=== PATIENT | male | born 1970 | race American Indian/Alaskan Native ===

== ENCOUNTER 2017-05-23 15:09 | Emergency (ER) | payer SELFPAY ==
--- NOTE | 2017-05-23 22:40 | Emergency Department Report ---
Minor Respiratory - HPI Chief Complaint: Upper Respiratory Infection Stated Complaint: FLU LIKE SYMPTOMS Time Seen by Provider: 05/23/17 22:39 Minor Respiratory: Yes Rhinorrhea, Yes Able to Tolerate Fluids, Yes Cough, Yes Chest Pain (with cough), Yes Fever, No Sore Throat, No Ear Pain, No Sick Contacts, No Hemoptysis, No Shortness of Breath Other History: This is a 47 y.o. male presents with cough, weakness, congesion, fever, sneezing, and body aches for 1 week. Patient state he has been taking OTC cold and flu medicine for a week with no improvement. Admits to not getting influenza vaccine this season. Denies SOB, wheezing, nausea, and vomiting. ED Review of Systems ROS: Stated complaint: FLU LIKE SYMPTOMS Other details as noted in HPI Constitutional: see HPI, chills, fever, weakness. denies: diaphoresis, malaise Eyes: denies: eye pain, eye discharge, vision change ENT: as per HPI, congestion. denies: ear pain, throat pain, dental pain, hearing loss, epistaxis Respiratory: see HPI, cough. denies: orthopnea, shortness of breath, SOB with exertion, SOB at rest, stridor, wheezing Cardiovascular: chest pain (with coughing). denies: palpitations, dyspnea on exertion, orthopnea, edema, syncope, paroxysmal nocturnal dyspnea Gastrointestinal: denies: abdominal pain, nausea, diarrhea Musculoskeletal: myalgia (genearlized). denies: back pain, joint swelling, arthralgia Neurological: denies: headache, weakness, paresthesias ED Past Medical Hx - Past Medical History Hx Hypertension: Yes Hx Diabetes: Yes Additional medical history: High Cholesterol - Surgical History Past Surgical History?: No - Social History Smoking Status: Never Smoker Substance Use Type: None - Medications Home Medications: Home Medications Medication Instructions Recorded Confirmed Last Taken Type Azithromycin [Zithromax] 250 mg PO DAILY 4 Days #4 tablet 05/24/17 Unknown Rx Benzonatate 200 mg PO TID PRN #30 capsule 05/24/17 Unknown Rx Fluticasone [Flonase] 1 spray NS QDAY #1 bottle 05/24/17 Unknown Rx Minor Respiratory Exam - Exam General: Vital signs noted. No distress. Alert and acting appropriately. HEENT: Yes Pharyngeal Erythema, Yes Moist Mucous Membranes, Yes Rhinorrhea ( turbinates swollen and red, mucoid discharge bilaterally), Yes Frontal Tenderness, No Pharyngeal Exudates, No Conjuctival Injection, No Maxillary Tenderness Ear: Neither TM Bulge, Neither TM Erythema, Neither EAC Pain, Neither EAC Discharge Neck: Yes Supple, No Adenopathy Lungs: Yes Ronchi (on RML and RLL), Yes Cough, No Good Air Exchange, No Wheezes , No Stridor, No Labored Respirations, No Retractions, No Use of Accessory Muscles, No Other Abnormal Lung Sounds Heart: Yes Regular, No Murmur Abdomen: Yes Normal Bowel Sounds, No Tenderness, No Peritoneal Signs Skin: No Rash, No Edema Neurologic: Alert and oriented, no deficits. Musculoskeletal: Unremarkable. ED Course Vital Signs 05/23/17 16:16 Temperature 99.0 F Pulse Rate 87 Respiratory 18 Rate Blood Pressure 142/85 O2 Sat by Pulse 95 Oximetry ED Medical Decision Making - Radiology Data Radiology results: image reviewed IMPRESSION: The heart size is normal.. There are bilateral perihilar and lower lobe infiltrates. There are no pleural effusions or pneumothoraces.. - Medical Decision Making This is a 47 y.o. male presents with cough, weakness, congestion, fever, and headaches for 1 week. Taking OTC cold and flu medicine. Negative rapid influenza Chest X-ray IMPRESSION: The heart size is normal.. There are bilateral perihilar and lower lobe infiltrates. There are no pleural effusions or pneumothoraces.. Vitals stable, temp 99.0, BP 142/85, Sat 95% on room air CAP: discharged on azithromycin, benzonatate, and flonase. F/U with PCP IN 1-2 days. Critical care attestation.: If time is entered above; I have spent that time in minutes in the direct care of this critically ill patient, excluding procedure time. ED Disposition Clinical Impression: Pneumonia Qualifiers: Pneumonia type: due to Mycoplasma pneumoniae Laterality: bilateral Lung location: lower lobe of lung Qualified Code(s): J15.7 - Pneumonia due to Mycoplasma pneumoniae Disposition: TO HOME OR SELFCARE Is pt being admited?: No Does the pt Need Aspirin: No Condition: Stable Instructions: Community-acquired Pneumonia (ED), Bacterial Pneumonia (ED) Additional Instructions: Follow up with [facility] in 1-2 days. You should start to feel better after starting antibiotics. Follow up chest x-ray in 7 weeks. Prescriptions: Azithromycin [Zithromax] 250 mg PO DAILY 4 Days #4 tablet Benzonatate 200 mg PO TID PRN #30 capsule PRN Reason: Cough Fluticasone [Flonase] 1 spray NS QDAY #1 bottle Referrals: PRIMARY CARE, [Primary Care Provider] - 3-5 Days [facility] [Outside] - 3-5 Days [facility] [Outside] - 3-5 Days [facility] [Outside] - 3-5 Days Time of Disposition: 01:05 Print Language: CHADIAN
--- NOTE | 2017-05-23 23:49 | XRay Report ---
FINAL REPORT PROCEDURE: XR CHEST ROUTINE 2V TECHNIQUE: PA and lateral chest radiographs were obtained. CPT 18485 HISTORY: cough COMPARISON: No prior studies are available for comparison. FINDINGS: Heart: Normal. Mediastinum/Vessels: Normal. Lungs/Pleural space: There are bilateral perihilar and lower lobe infiltrates. There are no pleural effusions or pneumothoraces.. Bony thorax: No acute osseous abnormality. Other: IMPRESSION: The heart size is normal.. There are bilateral perihilar and lower lobe infiltrates. There are no pleural effusions or pneumothoraces..
[2017-05-24] MEDS ORDERED: ZITHROMAX PO ONE (01:09)
[2017-05-24 01:46] VITALS: BP 136/81
== END 2017-05-24 01:23 | disposition home or self-care (01) ==
LOC: EDSEX → ED 15:09
DX: J15.7 Pneumonia due to Mycoplasma pneumoniae (principal); I10 Essential (primary) hypertension; E11.9 Type 2 diabetes mellitus without complications; E78.00 Pure hypercholesterolemia, unspecified
CPT/HCPCS: 71046; 87400; 99283